=== PATIENT | female | born 1990 | race Caucasian/White ===

== ENCOUNTER 2025-06-15 11:01 | Emergency (ER) | payer MEDICAID ==
[~2025-06-15] VITALS: Ht 167.6 cm; Wt 54.4 kg
[2025-06-15 11:56] VITALS: BP 132/76; PULSE 89; RESP 18; TEMP 98.2; O2SAT 98
== END 2025-06-15 16:30 | disposition home or self-care (01) ==
LOC: ER 11:01
DX: L02.91 Cutaneous abscess, unspecified (principal); Z90.49 Acquired absence of other specified parts of digestive tract
CPT/HCPCS: 10060; 99282